=== PATIENT | female | born 1960 | race Caucasian/White ===

== ENCOUNTER → 2023-02-13 | Emergency (ER) | payer BC ==
[~2023-02-13] VITALS: Ht 162.6 cm; Wt 63.5 kg
[~2023-02-13] MED LIST: MECLIZINE HCL 12.5 MG TABLET PO ONE; MECLIZINE HCL 25 MG TABLET ONE
--- NOTE | 2023-02-13 15:35 | NUR ---
RECEIVED PT 62 YRS FEMALE CAME BY MYA FAINTED AT HOME FALLY AWKE AND ALERT NO WEEKNESS Addendum: 02/13/23 at 2007 by LINA Amendment undone in EDM - 02/13/23 at 2008 by LINA PATIENT DISCHARGED BY DR GOMES
--- NOTE | 2023-02-13 16:00 | NUR ---
BLCHRISTIANED DROW BY LAB TACH
[2023-02-13 16:10] LABS: BASOPHILS # (AUTO) 0.1 K/uL (0.0-0.2); BASOPHILS % (AUTO) 0.8 % (0.0-2.0); HEMATOCRIT 35 % (33-45); HEMOGLOBIN 11.2 g/dL (11.5-14.8); LYMPHOCYTES # (AUTO) 1.9 K/uL (0.8-4.8); LYMPHOCYTES % (AUTO) 31.2 % (20.0-44.0); MEAN CORPUSCULAR HGB CONC 32 g/dl (31.0-36.0); MEAN CORPUSCULAR VOLUME 65 fL (82-100); MONOCYTES # (AUTO) 0.4 K/uL (0.1-1.30); MONOCYTES % (AUTO) 6.8 % (2.0-12.0); NEUTROPHILS # (AUTO) 3.4 K/uL (1.8-8.9); NEUTROPHILS % (AUTO) 56.2 % (43.0-81.0); PLATELET COUNT (AUTO) 269 K/uL (150-450)
[2023-02-13 16:18] LABS: CALCIUM, SERUM 9.4 mg/dL (8.5-10.1); CARBON DIOXIDE 25 mmol/L (21-32); CHLORIDE 101 mmol/L (98-107); CREATININE 0.9 mg/dL (0.6-1.3); GLUCOSE 140 mg/dL (74-106); POTASSIUM 3.6 mmol/L (3.5-5.1); SODIUM SERUM 135 mmol/L (136-145); UREA NITROGEN, BLOOD 19 mg/dL (7-18)
--- NOTE | 2023-02-13 16:27 | NUR ---
TO CT SCAN OF HEAD
[2023-02-13 16:30] LABS: ALANINE AMINOTRANSFERASE 26 U/L (12-78); ALBUMIN 4.1 g/dL (3.4-5.0); ALKALINE PHOSPHATASE 69 U/L (46-116); ASPARTATE AMINOTRANSFERASE 19 U/L (15-37); BILIRUBIN,DIRECT 0.1 mg/dL (0.0-0.2); BILIRUBIN,TOTAL 0.8 mg/dL (0.2-1.0); TOTAL PROTEIN, SERUM 7.5 g/dL (6.4-8.2)
[2023-02-13 17:16] LABS: EOSINOPHILS % (MANUAL) 11 % (0-4); LYMPHOCYTES % (MANUAL) 28 % (16-48); MONOCYTES % (MANUAL) 8 % (0-11.0); NEUTROPHILS % (MANUAL) 53 (42-76)
--- NOTE | 2023-02-13 17:17 | NUR ---
DINESES PAIN OR DICOMFORT AT THIS TIME
--- NOTE | 2023-02-13 18:17 | NUR ---
AWAITING DIPOSITION OF PATIENT BY .
--- NOTE | 2023-02-13 19:00 | NUR ---
UA SENT TO LAB
--- NOTE | 2023-02-13 19:18 | NUR ---
MAEBL OFFKENDRICK RN
--- NOTE | 2023-02-13 20:08 | NUR ---
Patient discharged to home in stable condition. Written and verbal after care instructions given. Patient verbalizes understanding of instruction. Addendum: 02/13/23 at 2009 by LINA PATIENT DISCHARGED BY DR GOMES
[2023-02-13 20:09] VITALS: BP 133/74; TEMP 98.6; O2SAT 95
== END | disposition home or self-care (01) ==
LOC: ER 15:35 → EDBD 15:35
DX: R42 Dizziness and giddiness (principal)
CPT/HCPCS: 99285; 70450; 71045; 93005; 85025; 80048; 80076; 36415; 84484; 83880; 82962; 85007; J8597